=== PATIENT | male | born 1995 | race African-American/Black ===

== ENCOUNTER 2020-10-27 18:00 | Emergency (ER) | payer OTHER ==
[~2020-10-27] VITALS: Ht 170.2 cm; Wt 110.2 kg
[2020-10-27 18:34] LABS: ABSOLUTE NEUTROPHILS 5.8 thou/uL (1.4-8.2); BASOPHILS 0.3 % (0.0-2.0); EOSINOPHILS 0.9 % (0.0-3.0); HEMATOCRIT 44.6 % (42.0-52.0); HEMOGLOBIN 15.1 gm/dL (14.0-18.0); LYMPHOCYTES 29.3 % (24.0-44.0); MCH 31.2 pg (26.0-34.0); MCHC 33.8 g/dL (28.0-37.0); MCV 92.5 fL (80.0-100.0); MONOCYTES 7.1 % (1.0-8.0); PLATELET COUNT 278 thou/uL (150-400); POLYS 62.4 % (36.0-66.0); RBC 4.82 mil/uL (4.50-6.00); RDW 12.6 % (10.5-14.5); WBC 9.4 thou/uL (4.0-11.0)
[2020-10-27 18:39] LABS: CALCIUM 8.9 mg/dL (8.5-10.1); CREATININE 1.3 mg/dL (0.7-1.3); POTASSIUM 3.9 mmol/L (3.5-5.1)
[2020-10-27] MEDS ORDERED: NOHOMEMEDICATIONS (18:39)
[2020-10-27 18:45] LABS: TOTAL BILIRUBIN 0.6 mg/dL (0.2-1.0); TOTAL PROTEIN 8.1 g/dL (6.4-8.2)
[2020-10-27] MEDS ORDERED: NEXIUM40 MG PO (19:07)
[2020-10-27 19:12] VITALS: BP 137/68
--- NOTE | 2020-10-28 07:14 | EKG ---
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
== END 2020-10-27 19:12 | disposition home or self-care (01) ==
LOC: ER 18:00
PROVIDERS: Emergency Medicine
DX: R53.1 Weakness (principal); R42 Dizziness and giddiness; R53.83 Other fatigue; H53.8 Other visual disturbances; Z88.2 Allergy status to sulfonamides